=== PATIENT | female | born 1995 | race African-American/Black ===

== ENCOUNTER 2020-10-13 10:11 | Inpatient (IN) | payer BC, OTHER ==
[2020-10-13] MEDS ORDERED: hydrALAZINE 20 MG/ML VIAL SLOW IVP PRN ×2 (11:05→17:50)
[2020-10-13] MEDS ORDERED: Promethazine HCl 25 MG/ML VIAL IM PRN ×3 (11:05→17:50)
[2020-10-13] MEDS ORDERED: CEFAZOLIN 2 GM in Premix Bag 1 BAG IVPB SCH (11:05)
[2020-10-13] MEDS ORDERED: Famotidine/PF 20 mg/2ml Vial SLOW IVP PRN (11:05)
[2020-10-13] MEDS ORDERED: Bicitra 30 ML UDCUP PO PRN (11:05)
[2020-10-13] MEDS ORDERED: Ondansetron PF 4 MG/2 ML Vial IVP PRN ×3 (11:05→17:50)
[2020-10-13] MEDS ORDERED: Lactated Ringer's 1,000 ML IV SCH (11:05)
[2020-10-13 11:11] VITALS: BMI 41.3
[2020-10-13 11:17] LABS: Hemoglobin 11.7 g/dL (12.0-15.5); Mean Corpuscular HGB CONC 31.5 g/dL (32.0-36.0); Mean Corpuscular Hemoglobin 25.8 pg (27.0-33.0); Mean Corpuscular Volume 81.9 fl (81.6-98.3); Platelet Count 207 10x3/uL (150-450); Red Blood Cell (RBC) Count 4.54 10x6/uL (3.90-5.03); White Blood Cell (WBC) Count 5.5 10x3/uL (3.5-10.5)
[2020-10-13] MEDS ORDERED: PHENYLEPHRINE-NS 100 MCG/ML 10 ML SYRINGE ONE ×2 (11:32→13:21)
[2020-10-13] MEDS ORDERED: Morphine PF 10 MG/10 ML VIAL ONE (11:32)
[2020-10-13] MEDS ORDERED: Dexamethasone 4 mg/ml Vial ONE (11:32)
[2020-10-13] MEDS ORDERED: Oxytocin 10 UNITS/ML VIAL ONE (11:32)
[2020-10-13] MEDS ORDERED: Ondansetron PF 4 MG/2 ML Vial ONE (11:32)
[2020-10-13] MEDS ORDERED: Bicitra 30 ML UDCUP ONE (11:46)
[2020-10-13 12:11] LABS: SARS-CoV-2 NAA Rapid Test Not Detected (NotDetected)
[2020-10-13 12:13] LABS: Hep B Surf Ag Non-Reactive S/CO (NonReactive); Syphilis Antibody Nonreactive (Nonreactive); Syphilis Antibody Index 0.02 S/CO (<1.00 Non-Reactive)
[2020-10-13 12:26] LABS: HBSAg Index 0.15 S/CO (0-0.99)
[2020-10-13] MEDS ORDERED: ePHEDrine Sulfate 50 MG/10 ML VIAL ONE (12:57)
[2020-10-13] MEDS ORDERED: Naloxone HCl 0.4 mg/ml Vial IVP PRN ×2 (13:53)
[2020-10-13] MEDS ORDERED: Naloxone HCl 0.4 mg/ml Vial IV PRN (13:53)
[2020-10-13] MEDS ORDERED: diphenhydrAMINE 50 MG/ML VIAL IVP PRN (13:53)
[2020-10-13] MEDS ORDERED: Meperidine HCl/PF 25 MG/ML VIAL SLOW IVP PRN (13:53)
[2020-10-13] MEDS ORDERED: Promethazine HCl 25 MG SUPP PR PRN (13:53)
[2020-10-13] MEDS ORDERED: L&D-Morphine 4 MG/ML VIAL SLOW IVP PRN (13:53)
[2020-10-13] MEDS ORDERED: Ondansetron HCl/PF 4 MG/2 ML Vial IVP PRN (13:53)
[2020-10-13] MEDS ORDERED: HYDROmorphone 2 MG/ML VIAL SLOW IVP PRN (13:53)
[2020-10-13] MEDS ORDERED: Ketorolac Tromethamine 30 MG/ML VIAL IVP PRN (13:53)
[2020-10-13] MEDS ORDERED: Communication Order-Pharmacy FS SCH (14:00)
[2020-10-13] MEDS ORDERED: Ketorolac Tromethamine 30 MG/ML VIAL IVP SCH (14:00)
[2020-10-13] MEDS ORDERED: diphenhydrAMINE 50 MG/ML VIAL ONE (15:02)
[2020-10-13] MEDS ORDERED: Lanolin Ointment 7 GM TUBE TOP PRN (17:50)
[2020-10-13] MEDS ORDERED: Adacel (T-DAP) 0.5 ML SYRINGE IM ONE (17:50)
[2020-10-13] MEDS ORDERED: Acetaminophen 325 MG TAB PO PRN (17:50)
[2020-10-13] MEDS ORDERED: Bisacodyl 10 MG SUPP PR PRN (17:50)
[2020-10-13] MEDS ORDERED: Simethicone Chewable 80 MG TAB PO PRN (17:50)
[2020-10-13] MEDS: Ibuprofen 800 MG TAB PO SCH (18:07)
[2020-10-13] MEDS: diphenhydrAMINE 25 MG CAP PO PRN (23:06)
[2020-10-13] MEDS: Docusate Calcium (SURFAK) 240 MG CAP PO SCH (23:06)
[2020-10-13] MEDS: Ketorolac Tromethamine 30 MG/ML VIAL IVP PRN (23:06)
[2020-10-13] MEDS: Ferrous Sulfate 325 MG TAB PO SCH (23:08)
[2020-10-14] MEDS ORDERED: Zolpidem Tartrate 5 MG TAB PO PRN (02:00)
[2020-10-14] MEDS ORDERED: HYDROcodone/Acetaminophen 5/325 mg Tablet PO PRN (02:30)
[2020-10-14] MEDS: Ketorolac Tromethamine 30 MG/ML VIAL IVP PRN (05:54)
[2020-10-14 06:14] LABS: Hemoglobin 10.1 g/dL (12.0-15.5); Mean Corpuscular Hemoglobin 26.3 pg (27.0-33.0); Mean Corpuscular Volume 82.3 fl (81.6-98.3); Platelet Count 186 10x3/uL (150-450); Red Blood Cell (RBC) Count 3.84 10x6/uL (3.90-5.03)
[2020-10-14] MEDS: Ferrous Sulfate 325 MG TAB PO SCH (07:32)
[2020-10-14] MEDS: Docusate Calcium (SURFAK) 240 MG CAP PO SCH ×2 (08:38→22:04)
[2020-10-14] MEDS: Prenatal Vitamin 1 TAB PO SCH (08:38)
[2020-10-14] MEDS: HYDROcodone/Acetaminophen 5/325 mg Tablet PO PRN ×4 (08:38→22:04)
[2020-10-14] MEDS: diphenhydrAMINE 25 MG CAP PO PRN (11:04)
[2020-10-14] MEDS: Ibuprofen 800 MG TAB PO SCH ×2 (13:33→22:04)
[2020-10-15] MEDS: Ferrous Sulfate 325 MG TAB PO SCH ×2 (00:45→08:26)
[2020-10-15] MEDS: Ibuprofen 800 MG TAB PO SCH (06:07)
[2020-10-15] MEDS: HYDROcodone/Acetaminophen 5/325 mg Tablet PO PRN (06:07)
[2020-10-15 07:50] VITALS: BP 110/77; TEMP 97.8
[2020-10-15] MEDS: Docusate Calcium (SURFAK) 240 MG CAP PO SCH (09:07)
[2020-10-15] MEDS: Prenatal Vitamin 1 TAB PO SCH (09:07)
== END 2020-10-15 13:28 | disposition home or self-care (01) | DRG 787 ==
LOC: CSHLD 10:11 → CSHPP 15:59
PROVIDERS: ADMIT Student in an Organized Health Care Education/Training Program; ATTEND Student in an Organized Health Care Education/Training Program
PROC: 10D00Z1 Extraction of Products of Conception, Low, Open Approach (ICD-10-PCS; principal; 2020-10-13)
DX: O34.211 Maternal care for low transverse scar from previous cesarean delivery (principal); D62 Acute posthemorrhagic anemia; Z3A.39 39 weeks gestation of pregnancy; Z37.0 Single live birth; O99.824 Streptococcus B carrier state complicating childbirth; Z20.822 Contact with and (suspected) exposure to COVID-19; O99.03 Anemia complicating the puerperium
CPT/HCPCS: 51702; 85027; 86780; 86850; 86900; 86901; 87340; J0690; J1100; J1200; J1885; J2270; J2405; Q0163; U0002